=== PATIENT | male | born 1940 | race Caucasian/White ===

== ENCOUNTER 2018-02-27 20:07 | Inpatient (IN) ==
[2018-02-27] MEDS ORDERED: LACTATED RINGERS 1,000 ML IV ONE (20:14)
[2018-02-27] MEDS ORDERED: cefTRIAXone 1 GM in DEXTROSE 5% IN WATER 50 ML IV SCH (20:15)
--- NOTE | 2018-02-27 21:11 | Emergency Department Note ---
Male Urogenital HPI - General Chief complaint: Urogenital-Male Stated complaint: UTI for 1 week Time Seen by Provider: 02/27/18 20:11 Source: patient, family Mode of arrival: wheelchair Limitations: no limitations - History of Present Illness MD Complaint: dysuria, other (low abd and perineal pain) Onset (ago): week(s) Duration: constant, other (markedly worse today) Location: abdomen Severity: moderate Severity scale (1-10): 8 Quality: burning, sharp Improves with: none Worsens with: urination, palpation, movement other (previous dx uti, rx taking, not working) Reports: fever, other (weakness, malaise, aloc) - Related Data Sexually active: No Home Medications Medication Instructions Recorded Confirmed Phenazopyridine HCl [Azo Urinary 2 tab PO TID 02/27/18 02/27/18 Pain Relief] Sulfamethoxazole/Trimethoprim 1 tab PO BID 02/27/18 02/27/18 [Bactrim Ds] Allergies Allergy/AdvReac Type Severity Reaction Status Date / Time No Known Drug Allergies Allergy Unknown NONE Unverified 08/25/14 03:07 [NKDA] Review of Systems All systems ED: reviewed and negative except as stated. Constitutional: Reports: as per HPI, fever, chills, weakness Cardiovascular: Reports: dyspnea on exertion Respiratory: Reports: shortness of breath Gastrointestinal: Reports: abdominal pain, nausea Genitourinary: Reports: dysuria, frequency, urgency, hematuria, incontinence Musculoskeletal: Reports: back pain, myalgia Neurological: Reports: confusion Past Medical History - Past Medical History Attestation: Yes: The following information was validated with the patient. Source: obtained from family Medical history: Reports: arthritis, coronary artery disease, hypertension, other (BPH/UTI) Surgical history ED: Reports: angioplasty/stent (ended up not needing coronary stent, medically managed), orthopedic, other, other (cysto) Family history: Reports: hypertension - Social History smoking status: Former smoker Alcohol use: Reports: Unknown Physical Exam Limitations: no limitations General appearance: in distress, lethargic Head: atraumatic Eye: Present: normal appearance, EOMI ENT: mucous membranes dry Neck: Present: normal inspection Chest: Present: normal inspection Respiratory: Present: normal lung sounds bilaterally Cardiovascular: Present: tachycardia Abdominal: Present: soft, tenderness, normal bowel sounds. Absent: distention, guarding, rebound, rigidity Abdominal tenderness: Present: suprapubic, mild Rectal: Present: deferred : Present: other (perineal palpation mod tender) Extremities: Present: normal inspection Back: Absent: tenderness, CVA tenderness (R), CVA tenderness (L) Neurological: Present: alert, oriented X3, CN II-XII intact Skin: Present: warm, dry Course Course Narrative: several re evals improved mental status with short time here and IVFs awaiting lab/blood results UA dirty inspite of Bactrim use still tachy at 102 but feels better overall Vital Signs Temperature 98.2 F 02/27/18 20:08 Pulse Rate 117 H 02/27/18 20:08 Respiratory Rate 16 02/27/18 20:08 Blood Pressure 150/83 02/27/18 20:08 Pulse Oximetry (%) 91 02/27/18 20:08 Temperature 98.2 F 02/27/18 20:08 Pulse Rate 99 H 02/27/18 22:32 Respiratory Rate 21 02/27/18 22:00 Blood Pressure 107/76 02/27/18 22:30 Pulse Oximetry (%) 92 02/27/18 22:32 Urogenital-Male - MDM Narrative Medical decision making narrative: better after IVFs, but still persistent tachy at 105 and low BP for him at 107 SBP, UA still infected inspite of Bactrim at home, lives >30 miles away, talked to Dr Bragg, will admit tele. - Lab Data Lab results reviewed: Yes I reviewed the patient's lab results. Result diagrams: 02/27/18 20:26 02/27/18 20:26 Lab Results 02/27/18 02/27/18 02/27/18 Range/Units 20:26 20:26 20:26 WBC 6.0 (4.5-11.0) K/mcL RBC 5.26 (4.50-5.90) M/mcL Hgb 16.1 (13.5-16.5) g/dL Hct 47.6 (41.0-55.0) % MCV 90.4 (80.0-100.0) fL MCH 30.6 (26.0-34.0) pg MCHC 33.9 (31.0-36.0) g/dL RDW 14.4 (11.5-14.5) % Plt Count 163 (140-440) K/mcL MPV 8.7 (7.4-10.4) fL Gran % 97.2 H (38.0-78.0) % Lymph % (Auto) 2.2 L (15.5-49.0) % [place] % (Auto) 0.2 L (1.0-12.0) % Eos % (Auto) 0.3 (0.0-7.0) % Baso % (Auto) 0.1 (0.0-2.0) % Gran # 5.9 (1.8-8.0) K/mcL Lymph # (Auto) 0.1 L (1.5-4.8) K/mcL [place] # (Auto) 0 L (0.1-0.9) K/mcL Eos # (Auto) 0 (0.0-0.7) K/mcL Baso # (Auto) 0 (0.0-0.3) K/mcL VBG Lactic Acid 2.4 H (0.5-2.0) mmol/L Sodium 133 (133-145) mmol/L Potassium 3.7 (3.3-5.1) mmol/L Chloride 100 (96-108) mmol/L Carbon Dioxide 15 L (22-30) mmol/L Anion Gap 18.0 H (8-16) BUN 18 (8-23) mg/dl Creatinine 1.3 H (0.7-1.2) mg/dl GFR Calculation 52 Glucose 157 H (70-105) mg/dL Calcium 9.6 (8.6-10.4) mg/dl Total Bilirubin 1.2 H (0.0-1.0) mg/dL AST 19 (0-37) U/l ALT 18 (0-40) U/l Alkaline Phosphatase 117 (39-117) U/L NT-Pro-B Natriuret Pep 95.3 (0-450) pg/ml Total Protein 6.8 (5.9-8.4) gm/dL Albumin 4.1 (3.2-5.2) gm/dL Globulin 2.7 (2.2-3.7) gm/dL Albumin/Globulin Ratio 1.5 (1.0-2.3) - Radiology Data Radiology results reviewed: Yes I reviewed the patient's radiology results. CXR NAD - EKG Data EKG attestation: Yes I reviewed and interpreted this EKG. EKG shows normal: sinus rhythm Rate: tachycardia Marion/QRS: LBBB Disposition Pt seen by [facility] [facility]/PA only: No Clinical Impression: Sepsis associated hypotension Urinary tract infection Qualifiers: Urinary tract infection type: catheter-associated UTI Indwelling urinary catheter type: unspecified Encounter type: initial encounter Qualified Code(s): T83.511A - Infection and inflammatory reaction due to indwelling urethral catheter, initial encounter; N39.0 - Urinary tract infection, site not specified Disposition: Xfer As Inpt ([facility]) Condition: Fair Referrals: Isidro Magdaleno MD [Family Provider] -
[2018-02-27 21:28] LABS: Basophils # (Auto) 0 K/mcL (0.0-0.3); Basophils % (Auto) 0.1 % (0.0-2.0); Eosinophils # (Auto) 0 K/mcL (0.0-0.7); Eosinophils % (Auto) 0.3 % (0.0-7.0); Granulocytes % (Auto) 97.2 % (38.0-78.0); Lymphocytes # (Auto) 0.1 K/mcL (1.5-4.8); Lymphocytes % (Auto) 2.2 % (15.5-49.0); Mean Cell Volume 90.4 fL (80.0-100.0); Mean Corpuscular HGB Conc 33.9 g/dL (31.0-36.0); Mean Corpuscular Hemoglobin 30.6 pg (26.0-34.0); Monocytes # (Auto) 0 K/mcL (0.1-0.9); Monocytes % (Auto) 0.2 % (1.0-12.0); Platelet Count 163 K/mcL (140-440); RBC 5.26 M/mcL (4.50-5.90); Red Cell Distribution Width 14.4 % (11.5-14.5)
[2018-02-27 21:49] LABS: proBNP 95.3 pg/ml (0-450)
[2018-02-27 21:51] LABS: ALT/SGPT 18 U/l (0-40); Albumin 4.1 gm/dL (3.2-5.2); Albumin/Globulin Ratio 1.5 (1.0-2.3); Alkaline Phosphatase 117 U/L (39-117); Blood Urea Nitrogen 18 mg/dl (8-23)
--- NOTE | 2018-02-27 22:49 | Internal Med History&Physical ---
Medical - H&P: [facility] Patient information: Note initiated : 02/27/18 at 10:48 pm Service Date, if different from initiated Date: [] Patient: Miquel Mullen a 77 y/o M admitted on for UTI for 1 week. Chief Complaint: [] Chief complaint: AMS, weakness History of present illness: Mr. Mullen is a 77 year old M with history of chronic urinary retention has been following up with urology since age 19. Patient self caths daily. Patient has been following up with urology Dr. Wright at [place]. Patient symptoms started roughly around a week ago and last Thursday he saw his urology. He was subsequent started on antibiotics however over the next 5 days he failed to improve. Noted intermittent fever along with weakness lightheadedness and has been feeling very lethargic. Increasing concerns he was brought into [place] ER. Initial workup was significant for pyuria/fever of 102 along with sepsis. Hospitalist service was consulted At the time of evaluation patient is accompanied with his Aditi. He was able to answer most of the questions. He denies hematuria but endorses to burning sensation. He denies drenching sweats but endorses to shaking chills. He denies chest pain myalgia arthralgia or rash, changes in medications. Review of systems 10 point review of system was performed and is negative except for one discussed above Medical - H&P: PMH Medical history: Hypertension CAD Arthritis Chronic urinary retention requiring straight cath Surgical history: Angioplasty Cystoscopy Pertinent family history: Nonsignificant Social history: Former smoker Sees urology Dr. Kyle Mendoza Medical - H&P: Meds Home Medications Medication Instructions Recorded Confirmed Type Phenazopyridine HCl [Azo Urinary 2 tab PO TID 02/27/18 02/27/18 History Pain Relief] Sulfamethoxazole/Trimethoprim 1 tab PO BID 02/27/18 02/28/18 History [Bactrim Ds] Allergies Allergy/AdvReac Type Severity Reaction Status Date / Time No Known Drug Allergies Allergy Unknown NONE Unverified 08/25/14 03:07 [NKDA] Medical - H&P: Exam - Constitutional Vitals: Temp Pulse Resp BP Pulse Ox 98.2 F 99 H 21 107/76 92 02/27/18 20:08 02/27/18 22:32 02/27/18 22:00 02/27/18 22:30 02/27/18 22:32 General appearance: no acute distress Exam: Patient alert and oriented. Head normocephalic Oral cavity dry No ear nose discharge Neck lymphadenopathy S1-S2 regular rhythm no murmur Chest clear to auscultation Abdomen soft nontender Lower extremity no cyanosis clubbing no joint swelling Skin no suspicious lesion Psych alert cooperative Neuro diminished strength/limited plantar dorsiflexion Medical - H&P: Reslt - Labs CBC & Chem 7: 02/27/18 20:26 02/27/18 20:26 Labs: Short CBC 02/27/18 Range/Units 20:26 WBC 6.0 (4.5-11.0) K/mcL Hgb 16.1 (13.5-16.5) g/dL Hct 47.6 (41.0-55.0) % Plt Count 163 (140-440) K/mcL BMP 02/27/18 20:26 Sodium 133 Potassium 3.7 Chloride 100 Carbon Dioxide 15 L BUN 18 Creatinine 1.3 H Glucose 157 H Calcium 9.6 Liver Function 02/27/18 Range/Units 20:26 Total Bilirubin 1.2 H (0.0-1.0) mg/dL AST 19 (0-37) U/l ALT 18 (0-40) U/l Alkaline Phosphatase 117 (39-117) U/L Albumin 4.1 (3.2-5.2) gm/dL Medical - H&P: A/P (1) Complicated UTI (urinary tract infection) Current visit: Yes Status: Acute * Sepsis associated with hypotension-management per guidelines. Venous lactate trending. Continue crystalloid challenges. Vasopressors if indicated. * Complicated UTI-start Rocephin. Await cultures. * History of hypertension hold antihypertensives. * Full code * Prophylaxis heparin Plan * Sepsis management guidelines * Crystalloids boluses/pancultures/venous lactate trending/vasopressors if indicated * Antibiotic coverage * PT OT * Inpatient admit
[2018-02-27] MEDS ORDERED: MAGNESIUM SULFATE 2 GM/50 ML BAG IV PRN (23:48)
[2018-02-27] MEDS ORDERED: ONDANSETRON 4 MG/2 ML VIAL IV PRN (23:48)
[2018-02-27] MEDS ORDERED: cefTRIAXone 2 GM in DEXTROSE 5% IN WATER 50 ML IV SCH (23:48)
[2018-02-27] MEDS ORDERED: 0.9 % SODIUM CHLORIDE 1,000 ML IV SCH (23:48)
[2018-02-27] MEDS ORDERED: POTASSIUM CHLORIDE 20 MEQ PACKET PO PRN (23:48)
[2018-02-28] MEDS ORDERED: cefTRIAXone 1 GM VIAL ONE
[2018-02-28] MEDS: ACETAMINOPHEN 325 MG TABLET PO PRN ×3 (01:02→14:47)
[2018-02-28] MEDS ORDERED: ACETAMINOPHEN 325 MG TABLET PO ONE (01:08)
[2018-02-28] MEDS: 0.9 % SODIUM CHLORIDE 1,000 ML IV SCH (02:35)
[2018-02-28 03:42] LABS: Mean Cell Volume 90.1 fL (80.0-100.0); Mean Corpuscular HGB Conc 33.7 g/dL (31.0-36.0); Mean Corpuscular Hemoglobin 30.4 pg (26.0-34.0); Platelet Count 143 K/mcL (140-440); RBC 4.51 M/mcL (4.50-5.90); Red Cell Distribution Width 14.2 % (11.5-14.5)
[2018-02-28 04:01] LABS: ALT/SGPT 19 U/l (0-40); Albumin 3.4 gm/dL (3.2-5.2); Albumin/Globulin Ratio 1.5 (1.0-2.3); Alkaline Phosphatase 69 U/L (39-117); Bilirubin,Direct < 0.2 mg/dL (0.0-0.3); Blood Urea Nitrogen 19 mg/dl (8-23); Gamma Glutamyl Transpeptidase 42 U/L (8-61); Uric Acid 4.9 mg/dL (2.5-8.0)
[2018-02-28 04:16] LABS: Band Neutrophils % 19 % (0-10); Basophils % (Manual) 1 % (0-2); Lymphocytes % 2 % (15-49); Metamyelocytes % 2 % (0-0); Monocytes % (Manual) 3 % (1-12); Platelet Estimate NORMAL (NORMAL); RBC Morphology NORMAL (NORMAL); Segmented Neutrophils % 73 % (38-78)
[2018-02-28] MEDS: MAGNESIUM SULFATE 2 GM/50 ML BAG IV ONE ×2 (04:50→06:06)
[2018-02-28] MEDS: 0.9 % SODIUM CHLORIDE 10 ML SYRINGE IV SCH ×3 (04:51→20:37)
[2018-02-28] MEDS ORDERED: LACTATED RINGERS 1,000 ML IV ONE ×2 (06:39→06:40)
[2018-02-28] MEDS ORDERED: MAGNESIUM SULFATE 2 GM/50 ML BAG IV ONE (06:41)
[2018-02-28] MEDS: MULTIVIT,THER IRON,CA,FA & MIN 1 TABLET PO SCH (08:18)
[2018-02-28] MEDS: HEPARIN 5,000 UNIT/ML VIAL SQ SCH ×2 (08:18→20:36)
[2018-02-28] MEDS: DOCUSATE SODIUM 100 MG CAPSULE PO SCH ×2 (08:18→20:37)
[2018-02-28] MEDS: NEUTRA PHOS 1 PACKET PO SCH ×2 (08:18→20:37)
--- NOTE | 2018-02-28 08:51 | XRay Report ---
HISTORY: Sepsis and urinary tract infection FINDINGS: Subtle increased interstitial lung markings are seen adjacent to the left diaphragm. This could be low-level inflammation or fibrosis. Similar findings were present at both lung bases on the prior abdomen CT done on 05/11/17. The remainder of the lung connelly are clear and well expanded. There is no evidence of pneumonia. The heart size, pulmonary vasculature, mediastinum, brent and pleura are normal. IMPRESSION: Subtle chronic interstitial lung disease in the left lower lobe. The chest is otherwise normal. Interpreted and Authenticated by: Mack Serrano 02/28/18
[2018-02-28 09:41] LABS: Appearance,Urine CLEAR; Bacteria,Urine 0 /hpf (0); Bilirubin,Urine NEG (NEG); Color,Urine YELLOW; Glucose,Urine (UA) NEGATIVE (NEG); Leukocyte Esterase,Urine 25 /uL (NEG); Protein,Urine NEG (NEG); Specific Gravity,Urine 1.008 (1.000-1.035); Urine Blood 0.2 mg/dL (<0.03); Urine RBC < 1 /hpf (0-1); Urine Squamous Epithelial Cell 0 /hpf (0-4); Urine WBC 3 /hpf (0-4); Urobilinogen,Urine NEG (NEG)
--- NOTE | 2018-02-28 10:21 | Internal Med Progress Note ---
Medical - PN: Subj Patient information: Note initiated : 02/28/18 at 10:18 am Service Date, if different from initiated Date: [] Patient: Miquel Mullen a 77 y/o M admitted on 02/27/18 for UTI for 1 week. Chief Complaint: [] Interval history: Mr. Mullen is a 77 year old M with history of chronic urinary retention has been following up with urology since age 19. Patient self caths daily. Patient has been following up with urology Dr. Wright at [place]. Patient symptoms started roughly around a week ago and last Thursday he saw his urology. He was subsequent started on antibiotics however over the next 5 days he failed to improve. Noted intermittent fever along with weakness lightheadedness and has been feeling very lethargic. Increasing concerns he was brought into [place] ER. Initial workup was significant for pyuria/fever of 102 along with sepsis. Hospitalist service was consulted At the time of evaluation patient is accompanied with his Aditi. He was able to answer most of the questions. He denies hematuria but endorses to burning sensation. He denies drenching sweats but endorses to shaking chills. He denies chest pain myalgia arthralgia or rash, changes in medications. 02/28 Patient seen examined, no acute overnight issues, some low bp reading,s but otherwise doing well lactic acid was trending up, 2.9 this AM labs showed wbc 17, 19% bands, magnesium 1.6, phosphorus 2.0, creatinine 1.4. Patient received 2 L of saline bolus and lactic acid came down to 2.1. Patient clinically feeling much better has no chest pain shortness of breath or any GI complaints Pertinent ROS: Denies headache, dizziness Denies chest pain, palpitations Denies cough or shortness of breath Denies abdominal pain, nausea or vomiting. - Constitutional Vitals: Vital Signs Temp Pulse Resp BP Pulse Ox 98.5 F 72 24 H 104/66 99 02/28/18 06:01 02/28/18 07:02 02/28/18 04:02 02/28/18 07:01 02/28/18 07:02 Period Temp Pulse Resp BP Sys/Frausto Pulse Ox Last 24 Hr 98.2 F-102.6 F 65-119 12-26 78-150/41-94 90-99 Intake and Output 02/27/18 02/28/18 02/28/18 21:59 05:59 13:59 Intake Total 50 / 50 2390 / 2390 Output Total 875 / 875 850 / 850 Balance 50 / 50 1515 / 1515 -850 / -850 Weight 220 lb 234 lb 1.6 oz Intake & Output: Intake & Output 02/27/18 02/28/18 02/28/18 21:59 05:59 13:59 Intake Total 50 / 50 2390 / 2390 Output Total 875 / 875 850 / 850 Balance 50 / 50 1515 / 1515 -850 / -850 Weight 220 lb 234 lb 1.6 oz Intake: IV 50 / 50 0 / 2050 Sodium Chloride 0.9% 1,000 ml @ 1000 / 1000 Wide Open IV BOLUS JESSICA Rx#: [id number] Lactated Ringers 1,000 ml @ 500 1000 / 1000 mls/hr IV .Q2H ONE Rx#: [id number] Rocephin 1 gm In Dextrose 5% in 50 / 50 Water 50 ml @ 100 mls/hr IV ONCE JESSICA Rx#:[id number] Oral 340 / 340 Output: Urine Catheter Amount 875 / 875 850 / 850 Other: Urine Appearance Clear Urine Color Lee Lee Exam: Constitutional; Afebrile, cooperative, alert, not in distress. Respiratory system: Air Entry equal on both sides, No crackles or wheezing, no rhonchi. CVS- Rate rhythm regular, S1,S2 heard, no gallop, no rub. Abdomen- Soft nontender abdomen, no organomegaly, no tenderness, no guarding or rigidity, POSITION CLASSIFIER- AOOx3, moving all extremities, no gross focal deficit noted. Medical - PN: Obj Da - Labs CBC & Chem 7: 02/28/18 02:57 02/28/18 02:57 Labs: Abnormal Lab Results 02/28/18 02/28/18 02/28/18 08:15 07:57 02:57 WBC Hct Gran % Lymph % (Auto) [place] % (Auto) Lymph # (Auto) [place] # (Auto) Band Neutrophils % Lymphocytes % Metamyelocytes % VBG Lactic Acid 2.1 H 2.9 H Sodium Carbon Dioxide Anion Gap Creatinine Glucose Calcium Phosphorus Total Bilirubin Total Protein Urine Occult Blood 0.2 A Urine Nitrate Pos A Ur Leukocyte Esterase 25 A 02/28/18 02/28/18 02/27/18 02:57 02:57 20:26 WBC 17.7 H Hct 40.7 L Gran % Lymph % (Auto) [place] % (Auto) Lymph # (Auto) [place] # (Auto) Band Neutrophils % 19 H Lymphocytes % 2 L Metamyelocytes % 2 H VBG Lactic Acid 2.4 H Sodium 132 L Carbon Dioxide 19 L Anion Gap Creatinine 1.4 H Glucose 133 H Calcium 8.5 L Phosphorus 2.0 L Total Bilirubin Total Protein 5.7 L Urine Occult Blood Urine Nitrate Ur Leukocyte Esterase 02/27/18 02/27/18 20:26 20:26 WBC Hct Gran % 97.2 H Lymph % (Auto) 2.2 L [place] % (Auto) 0.2 L Lymph # (Auto) 0.1 L [place] # (Auto) 0 L Band Neutrophils % Lymphocytes % Metamyelocytes % VBG Lactic Acid Sodium Carbon Dioxide 15 L Anion Gap 18.0 H Creatinine 1.3 H Glucose 157 H Calcium Phosphorus Total Bilirubin 1.2 H Total Protein Urine Occult Blood Urine Nitrate Ur Leukocyte Esterase Meds: Medications Acetaminophen (Tylenol) 650 mg PO Q4-6HP PRN PRN Reason: PAIN/FEVER > 101 Last Admin: 02/28/18 08:17 Dose: 650 mg Docusate Sodium (Colace) 100 mg PO BID [facility] Last Admin: 02/28/18 08:18 Dose: 100 mg Heparin Sodium (Porcine) (Heparin) 5,000 unit SQ Q12 [facility] Last Admin: 02/28/18 08:18 Dose: 5,000 unit Magnesium Sulfate (Magnesium Sulfate) 2 gm in 50 mls @ 50 mls/hr IV UD PRN PRN Reason: MG = or < 1.7 Last Infusion: 02/28/18 05:54 Dose: Infused Acetaminophen (Ofirmev) 1,000 mg in 100 mls @ 200 mls/hr IV Q6HP PRN PRN Reason: PAIN/FEVER > 101 Sodium Chloride (Sodium Chloride 0.9%) 1,000 mls @ 0 mls/hr IV BOLUS [facility] Last Infusion: 02/28/18 05:08 Dose: Infused Ceftriaxone Sodium 2 gm/ (Dextrose) 50 mls @ 100 mls/hr IV DAILY [facility] Iron Carb/Multivit/Stanly/Folic Acid (Multivitamin W/Minerals) 1 tab PO DAILY [facility] Last Admin: 02/28/18 08:18 Dose: 1 tab Ondansetron HCl (Zofran) 4 mg IV Q4-6HP PRN PRN Reason: Nausea And Vomiting Potassium Chloride (Klor-Con) 40 meq PO DAILYP PRN PRN Reason: K+ < 3.5 Potassium/Phosphorus/Sodium (Neutra Phos) 1 packet PO BID JESSICA Last Admin: 02/28/18 08:18 Dose: 1 packet Senna/Docusate Sodium (Senna Plus Tablet) 1 tab PO HS JESSICA Sodium Chloride (Saline Flush) 10 ml IV Q8 [facility] Last Admin: 02/28/18 04:51 Dose: Not Given Medical - PN: A/P - Time Spent With Patient Total time spent is greater than 50% in coordination of care (as documented) at patient's floor/unit and/or counseling patient: - Narrative A/P Narrative: A/P Complicated UTI- Urine cultures sent, on IV rocephin with good response, monitor. Sepsis with hypotension/ Lactic acidosis- Last lactic acid is 2.1, continue to trend, bp stable, pt tolerating po well, clinically much improved. monitor closely h/o HTN- Home bp meds on hold for now, need to verify home meds OT/PT DVT - hep sq Full code Medical - PN: Qual - VTE Deep Vein Thrombosis/Pulmonary Embolism Present on Admission: No
[2018-02-28] MEDS: cefTRIAXone 2 GM in DEXTROSE 5% IN WATER 50 ML IV SCH (14:47)
--- NOTE | 2018-02-28 15:40 | Ultrasound Report ---
History: Urinary tract infection FINDINGS: The right kidney measures 5.4 x 5.5 x 11.9 cm and the left measures 5.5 x 5.9 x 11.3 cm. There are parapelvic cysts in both kidneys. These were documented on a prior abdomen CT done on 05/11/17. There is no hydronephrosis. No solid mass or calculus are present in either kidney. The left kidney has a moderate size wedge-shaped scar located laterally in the middle one third. The cortex is normal otherwise normal in thickness and echogenicity bilaterally. Doppler shows normal flow of urine through both ureters into the bladder. The bladder is well distended and measures 337 cc. After voiding there is 5 cc residual urine. No debris is seen within the bladder and the wall is normal in thickness. The spleen is upper limits of normal in size. This has probably not changed since prior CT scan. The prostate is mildly enlarged and heterogeneous. IMPRESSION: No acute abnormality in either kidney Interpreted and Authenticated by: Mack Serrano 02/28/18
[2018-02-28] MEDS ORDERED: SENNOSIDES/DOCUSATE SODIUM 1 TAB TABLET PO SCH (21:00)
[2018-02-28] MEDS: ACETAMINOPHEN 1,000 MG/100 ML BOTTLE IV PRN (23:40)
[2018-03-01] MEDS: 0.9 % SODIUM CHLORIDE 1,000 ML IV SCH (04:14)
[2018-03-01 05:59] LABS: Mean Corpuscular HGB Conc 33.6 g/dL (31.0-36.0); Mean Corpuscular Hemoglobin 30.9 pg (26.0-34.0); Platelet Count 116 K/mcL (140-440); RBC 4.36 M/mcL (4.50-5.90); Red Cell Distribution Width 14.5 % (11.5-14.5)
[2018-03-01] MEDS: 0.9 % SODIUM CHLORIDE 10 ML SYRINGE IV SCH ×3 (05:59→21:29)
[2018-03-01] MEDS: ACETAMINOPHEN 1,000 MG/100 ML BOTTLE IV PRN (06:03)
[2018-03-01 06:32] LABS: ALT/SGPT 15 U/l (0-40); Albumin 3.2 gm/dL (3.2-5.2); Albumin/Globulin Ratio 1.4 (1.0-2.3); Alkaline Phosphatase 78 U/L (39-117); Bilirubin,Direct 0.2 mg/dL (0.0-0.3); Blood Urea Nitrogen 16 mg/dl (8-23); Gamma Glutamyl Transpeptidase 35 U/L (8-61); Uric Acid 3.3 mg/dL (2.5-8.0)
[2018-03-01 06:55] LABS: Band Neutrophils % 25 % (0-10); Eosinophils % (Manual) 1 % (0-7); Lymphocytes % 7 % (15-49); Monocytes % (Manual) 3 % (1-12); Platelet Estimate DECREASED (NORMAL); RBC Morphology NORMAL (NORMAL); Segmented Neutrophils % 64 % (38-78)
[2018-03-01] MEDS ORDERED: VITAMIN D3 COMPLETE PO SCH (07:15)
[2018-03-01] MEDS ORDERED: VITAMIN B12 1000 MCG PO SCH (07:15)
[2018-03-01] MEDS ORDERED: LEVOTHYROXINE 100 MCG TABLET PO SCH (07:30)
[2018-03-01] MEDS ORDERED: OMEPRAZOLE 20 MG CAPSULE PO SCH (07:30)
[2018-03-01] MEDS: NEUTRA PHOS 1 PACKET PO SCH ×2 (08:11→21:26)
[2018-03-01] MEDS: DOCUSATE SODIUM 100 MG CAPSULE PO SCH ×2 (08:11→21:29)
[2018-03-01] MEDS: MULTIVIT,THER IRON,CA,FA & MIN 1 TABLET PO SCH (08:11)
[2018-03-01] MEDS: HEPARIN 5,000 UNIT/ML VIAL SQ SCH ×2 (08:12→21:27)
[2018-03-01] MEDS: cefTRIAXone 2 GM in DEXTROSE 5% IN WATER 50 ML IV SCH (08:42)
[2018-03-01] MEDS ORDERED: PHENAZOPYRIDINE 200 MG TABLET PO SCH (09:00)
[2018-03-01] MEDS ORDERED: ATORVASTATIN 20 MG TABLET PO SCH (09:00)
--- NOTE | 2018-03-01 09:36 | Internal Med Progress Note ---
Medical - PN: Subj Patient information: Note initiated : 03/01/18 at 9:33 am Service Date, if different from initiated Date: [] Patient: Miquel Mullen a 77 y/o M admitted on 02/27/18 for UTI for 1 week. Chief Complaint: [] Interval history: Mr. Mullen is a 77 year old M with history of chronic urinary retention has been following up with urology since age 19. Patient self caths daily. Patient has been following up with urology Dr. Wright at [place]. Patient symptoms started roughly around a week ago and last Thursday he saw his urology. He was subsequent started on antibiotics however over the next 5 days he failed to improve. Noted intermittent fever along with weakness lightheadedness and has been feeling very lethargic. Increasing concerns he was [facility]. Initial workup was significant for pyuria/fever of 102 along with sepsis. Hospitalist service was consulted At the time of evaluation patient is accompanied with his Aditi. He was able to answer most of the questions. He denies hematuria but endorses to burning sensation. He denies drenching sweats but endorses to shaking chills. He denies chest pain myalgia arthralgia or rash, changes in medications. 02/28 Patient seen examined, no acute overnight issues, some low bp reading,s but otherwise doing well lactic acid was trending up, 2.9 this AM labs showed wbc 17, 19% bands, magnesium 1.6, phosphorus 2.0, creatinine 1.4. Patient received 2 L of saline bolus and lactic acid came down to 2.1. Patient clinically feeling much better has no chest pain shortness of breath or any GI complaints 03/01 Patient seen examined, doing much better, WBC trending down. The patient has burning sensation in the bladder. Once his home medication azo restarted. Lactic acid has normalized, patient will be moved from telemetry status to floor status. Patient still has a low-grade temperature. Anticipate discharge once afebrile Pertinent ROS: Denies headache, dizziness Denies chest pain, palpitations Denies cough or shortness of breath Denies abdominal pain, nausea or vomiting. - Constitutional Vitals: Vital Signs Temp Pulse Resp BP Pulse Ox 99.0 F 77 18 118/64 95 03/01/18 07:24 03/01/18 07:24 03/01/18 07:24 03/01/18 07:24 03/01/18 08:00 Period Temp Pulse Resp BP Sys/Frausto Pulse Ox Last 24 Hr 99.0 F-100.6 F 73-91 03-09 85-122/44-80 93-98 Intake and Output 02/28/18 03/01/18 03/01/18 21:59 05:59 13:59 Intake Total 1210 / 1210 100 / 100 700 / 700 Output Total 425 / 425 600 / 600 650 / 650 Balance 785 / 785 -500 / -500 50 / 50 Weight 239 lb 4 oz Intake & Output: Intake & Output 02/28/18 03/01/18 03/01/18 21:59 05:59 13:59 Intake Total 1210 / 1210 100 / 100 700 / 700 Output Total 425 / 425 600 / 600 650 / 650 Balance 785 / 785 -500 / -500 50 / 50 Weight 239 lb 4 oz Intake: IV 50 / 50 100 / 100 100 / 100 Rocephin 2 gm In Dextrose 5% in 50 / 50 Water 50 ml @ 100 mls/hr IV DAILY [facility] Rx#:[id number] Oral 1160 / 1160 600 / 600 Output: Urine Catheter Amount 425 / 425 600 / 600 650 / 650 Other: Meal Breakfast Percent of Meal Consumed 100% Urine Appearance Cloudy Clear Uretheral (Ta) Clear Urine Color Dark Yellow Light [place] Dark Yellow Uretheral (Ta) Dark Yellow Urine Odor Normal Exam: Constitutional; Afebrile, cooperative, alert, not in distress. Respiratory system: Air Entry equal on both sides, No crackles or wheezing, no rhonchi. CVS- Rate rhythm regular, S1,S2 heard, no gallop, no rub. 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 Medical - PN: Obj Da - Labs CBC & Chem 7: 03/01/18 03:38 03/01/18 03:38 Labs: Abnormal Lab Results 03/01/18 03/01/18 02/28/18 03:38 03:38 08:15 WBC 14.8 H RBC 4.36 L Hgb 13.4 L Hct 40.1 L Plt Count 116 L Gran % Lymph % (Auto) [place] % (Auto) Lymph # (Auto) [place] # (Auto) Band Neutrophils % 25 H Lymphocytes % 7 L Metamyelocytes % Platelet Estimate Decreased A VBG Lactic Acid Sodium Carbon Dioxide 19 L Anion Gap Creatinine Glucose Calcium 8.5 L Phosphorus Total Bilirubin 1.2 H Total Protein 5.5 L Urine Occult Blood 0.2 A Urine Nitrate Pos A Ur Leukocyte Esterase 25 A 02/28/18 02/28/18 02/28/18 07:57 02:57 02:57 WBC RBC Hgb Hct Plt Count Gran % Lymph % (Auto) [place] % (Auto) Lymph # (Auto) [place] # (Auto) Band Neutrophils % Lymphocytes % Metamyelocytes % Platelet Estimate VBG Lactic Acid 2.1 H 2.9 H Sodium 132 L Carbon Dioxide 19 L Anion Gap Creatinine 1.4 H Glucose 133 H Calcium 8.5 L Phosphorus 2.0 L Total Bilirubin Total Protein 5.7 L Urine Occult Blood Urine Nitrate Ur Leukocyte Esterase 02/28/18 02/27/18 02/27/18 02:57 20:26 20:26 WBC 17.7 H RBC Hgb Hct 40.7 L Plt Count Gran % Lymph % (Auto) [place] % (Auto) Lymph # (Auto) [place] # (Auto) Band Neutrophils % 19 H Lymphocytes % 2 L Metamyelocytes % 2 H Platelet Estimate VBG Lactic Acid 2.4 H Sodium Carbon Dioxide 15 L Anion Gap 18.0 H Creatinine 1.3 H Glucose 157 H Calcium Phosphorus Total Bilirubin 1.2 H Total Protein Urine Occult Blood Urine Nitrate Ur Leukocyte Esterase 02/27/18 20:26 WBC RBC Hgb Hct Plt Count Gran % 97.2 H Lymph % (Auto) 2.2 L [place] % (Auto) 0.2 L Lymph # (Auto) 0.1 L [place] # (Auto) 0 L Band Neutrophils % Lymphocytes % Metamyelocytes % Platelet Estimate VBG Lactic Acid Sodium Carbon Dioxide Anion Gap Creatinine Glucose Calcium Phosphorus Total Bilirubin Total Protein Urine Occult Blood Urine Nitrate Ur Leukocyte Esterase Meds: Medications Acetaminophen (Tylenol) 650 mg PO Q4-6HP PRN PRN Reason: PAIN/FEVER > 101 Last Admin: 02/28/18 14:47 Dose: 650 mg Atorvastatin Calcium (Lipitor) 20 mg PO DAILY [facility] Last Admin: 03/01/18 08:11 Dose: 20 mg Docusate Sodium (Colace) 100 mg PO BID [facility] Last Admin: 03/01/18 08:11 Dose: 100 mg Heparin Sodium (Porcine) (Heparin) 5,000 unit SQ Q12 [facility] Last Admin: 03/01/18 08:12 Dose: 5,000 unit Magnesium Sulfate (Magnesium Sulfate) 2 gm in 50 mls @ 50 mls/hr IV UD PRN PRN Reason: MG = or < 1.7 Last Infusion: 02/28/18 05:54 Dose: Infused Acetaminophen (Ofirmev) 1,000 mg in 100 mls @ 200 mls/hr IV Q6HP PRN PRN Reason: PAIN/FEVER > 101 Last Infusion: 03/01/18 08:07 Dose: Infused Ceftriaxone Sodium 2 gm/ (Dextrose) 50 mls @ 100 mls/hr IV DAILY [facility] Last Admin: 03/01/18 08:42 Dose: 100 mls/hr Iron Carb/Multivit/Upholsterer Helper/Folic Acid (Multivitamin W/Minerals) 1 tab PO DAILY [facility] Last Admin: 03/01/18 08:11 Dose: 1 tab Levothyroxine Sodium (Synthroid) 100 mcg PO QAMAC [facility] Last Admin: 03/01/18 08:11 Dose: 100 mcg Non-Formulary Medication (Vitamin B12) 1,000 mcg PO WEEKLY [facility] Non-Formulary Medication (Vitamin D3 Complete Caplet) 50,000 unit PO WEEKLY [facility] Omeprazole (Prilosec) 20 mg PO QAMAC [facility] Last Admin: 03/01/18 08:11 Dose: 20 mg Ondansetron HCl (Zofran) 4 mg IV Q4-6HP PRN PRN Reason: Nausea And Vomiting Phenazopyridine HCl (Pyridium) 200 mg PO TID [facility] Last Admin: 03/01/18 08:11 Dose: 200 mg Potassium Chloride (Klor-Con) 40 meq PO DAILYP PRN PRN Reason: K+ < 3.5 Potassium/Phosphorus/Sodium (Neutra Phos) 1 packet PO BID [facility] Last Admin: 03/01/18 08:11 Dose: 1 packet Senna/Docusate Sodium (Senna Plus Tablet) 1 tab PO HS [facility] Last Admin: 02/28/18 20:37 Dose: 1 tab Sodium Chloride (Saline Flush) 10 ml IV Q8 [facility] Last Admin: 03/01/18 05:59 Dose: 10 ml Medical - PN: A/P - Time Spent With Patient Total time spent is greater than 50% in coordination of care (as documented) at patient's floor/unit and/or counseling patient: - Narrative A/P Narrative: A/P Complicated UTI- Urine cultures sent, on IV rocephin with good response, monitor. Sepsis with hypotension/ Lactic acidosis-resolved. WBC trending down, lactic acid levels have normalized h/o HTN- Home bp meds to be resumed OT/PT DVT - hep sq Full code Medical - PN: Qual - VTE Deep Vein Thrombosis/Pulmonary Embolism Present on Admission: No
[2018-03-01] MEDS ORDERED: POTASSIUM CHLORIDE 20 MEQ PACKET PO PRN (10:16)
[2018-03-01] MEDS ORDERED: ACETAMINOPHEN 1,000 MG/100 ML BOTTLE IV PRN (10:16)
[2018-03-01] MEDS ORDERED: ONDANSETRON 4 MG/2 ML VIAL IV PRN (10:16)
[2018-03-01] MEDS ORDERED: MAGNESIUM SULFATE 2 GM/50 ML BAG IV PRN (10:16)
[2018-03-01] MEDS ORDERED: ACETAMINOPHEN 325 MG TABLET PO PRN (10:16)
[2018-03-01] MEDS ORDERED: FLEETS ADULT ENEMA PR PRN (10:21)
[2018-03-01] MEDS ORDERED: BISACODYL 10 MG SUPP.RECT PR PRN (10:21)
[2018-03-01] MEDS ORDERED: MAGNESIUM HYDROXIDE 30 ML ORAL.SUSP PO PRN (10:21)
[2018-03-01] MEDS: PHENAZOPYRIDINE 200 MG TABLET PO SCH ×2 (15:09→21:26)
[2018-03-01] MEDS: SENNOSIDES/DOCUSATE SODIUM 1 TAB TABLET PO SCH (21:29)
[2018-03-01] MEDS ORDERED: traZODone HCL 50 MG TABLET PO PRN (21:35)
[2018-03-02 05:49] LABS: Mean Cell Volume 90.8 fL (80.0-100.0); Mean Corpuscular Hemoglobin 30.9 pg (26.0-34.0); Platelet Count 117 K/mcL (140-440); Red Cell Distribution Width 14.4 % (11.5-14.5)
[2018-03-02 06:29] LABS: ALT/SGPT 18 U/l (0-40); Albumin 3.1 gm/dL (3.2-5.2); Albumin/Globulin Ratio 1.1 (1.0-2.3); Alkaline Phosphatase 113 U/L (39-117); Bilirubin,Direct 0.2 mg/dL (0.0-0.3); Blood Urea Nitrogen 12 mg/dl (8-23); Gamma Glutamyl Transpeptidase 47 U/L (8-61); Uric Acid 3.2 mg/dL (2.5-8.0)
[2018-03-02] MEDS: 0.9 % SODIUM CHLORIDE 10 ML SYRINGE IV SCH ×3 (06:41→21:10)
[2018-03-02] MEDS: LEVOTHYROXINE 100 MCG TABLET PO SCH (07:24)
[2018-03-02] MEDS: OMEPRAZOLE 20 MG CAPSULE PO SCH (07:24)
[2018-03-02 08:12] LABS: Band Neutrophils % 14 % (0-10); Lymphocytes % 8 % (15-49); Monocytes % (Manual) 7 % (1-12); Platelet Estimate DECREASED (NORMAL); RBC Morphology NORMAL (NORMAL); Segmented Neutrophils % 71 % (38-78)
[2018-03-02] MEDS ORDERED: VANCOMYCIN PER PHARMACY IV SCH (08:25)
[2018-03-02] MEDS: ATORVASTATIN 20 MG TABLET PO SCH (08:50)
[2018-03-02] MEDS: MULTIVIT,THER IRON,CA,FA & MIN 1 TABLET PO SCH (08:50)
[2018-03-02] MEDS: DOCUSATE SODIUM 100 MG CAPSULE PO SCH ×2 (08:50→21:08)
[2018-03-02] MEDS: PHENAZOPYRIDINE 200 MG TABLET PO SCH ×3 (08:50→21:07)
[2018-03-02] MEDS: cefTRIAXone 2 GM in DEXTROSE 5% IN WATER 50 ML IV SCH (08:50)
[2018-03-02] MEDS: HEPARIN 5,000 UNIT/ML VIAL SQ SCH ×2 (08:50→21:09)
[2018-03-02] MEDS: LOSARTAN 50 MG TABLET PO SCH (08:50)
[2018-03-02] MEDS: NEUTRA PHOS 1 PACKET PO SCH ×2 (08:51→21:07)
[2018-03-02] MEDS: VANCOMYCIN 1,000 MG in 0.9 % SODIUM CHLORIDE 250 ML IV SCH ×2 (09:29→21:09)
--- NOTE | 2018-03-02 11:32 | Internal Med Progress Note ---
Medical - PN: Subj Patient information: Note initiated : 03/02/18 at 11:29 am Service Date, if different from initiated Date: [] Patient: Miquel Mullen a 77 y/o M admitted on 02/27/18 for UTI for 1 week. Chief Complaint: [] Interval history: Mr. Mullen is a 77 year old M with history of chronic urinary retention has been following up with urology since age 19. Patient self caths daily. Patient has been following up with urology Dr. Wright at [place]. Patient symptoms started roughly around a week ago and last Thursday he saw his urology. He was subsequent started on antibiotics however over the next 5 days he failed to improve. Noted intermittent fever along with weakness lightheadedness and has been feeling very lethargic. Increasing concerns [facility] Initial workup was significant for pyuria/fever of 102 along with sepsis. Hospitalist service was consulted At the time of evaluation patient is accompanied with his Aditi. He was able to answer most of the questions. He denies hematuria but endorses to burning sensation. He denies drenching sweats but endorses to shaking chills. He denies chest pain myalgia arthralgia or rash, changes in medications. 02/28 Patient seen examined, no acute overnight issues, some low bp reading,s but otherwise doing well lactic acid was trending up, 2.9 this AM labs showed wbc 17, 19% bands, magnesium 1.6, phosphorus 2.0, creatinine 1.4. Patient received 2 L of saline bolus and lactic acid came down to 2.1. Patient clinically feeling much better has no chest pain shortness of breath or any GI complaints 03/01 Patient seen examined, doing much better, WBC trending down. The patient has burning sensation in the bladder. Once his home medication azo restarted. Lactic acid has normalized, patient will be moved from telemetry status to floor status. Patient still has a low-grade temperature. Anticipate discharge once afebrile 03/02 Pt seen examined, had some chills last night, low grade fever blood cultures drawn during admission is positive 2 bottles for GPC in clusters , no speciation provided Pt started on vancomycin, repeat cultures sent Patient otherwise doing much better no acute complaints or concerns. Plan of care reviewed with him and his Pertinent ROS: Denies headache, dizziness Denies chest pain, palpitations Denies cough or shortness of breath Denies abdominal pain, nausea or vomiting. - Constitutional Vitals: Vital Signs Temp Pulse Resp BP Pulse Ox 98.7 F 73 20 115/70 98 03/02/18 07:47 03/02/18 07:47 03/02/18 07:47 03/02/18 07:47 03/02/18 07:47 Period Temp Pulse Resp BP Sys/Frausto Pulse Ox Last 24 Hr 97.9 F-100.2 F 68-97 16-28 94-149/58-83 92-98 Intake and Output 03/01/18 03/02/18 03/02/18 21:59 05:59 13:59 Intake Total 500 / 500 680 / 680 410 / 410 Output Total 1025 / 1025 700 / 700 Balance -525 / -525 680 / 680 -290 / -290 Weight 233 lb 8 oz Intake & Output: Intake & Output 03/01/18 03/02/18 03/02/18 21:59 05:59 13:59 Intake Total 500 / 500 680 / 680 410 / 410 Output Total 1025 / 1025 700 / 700 Balance -525 / -525 680 / 680 -290 / -290 Weight 233 lb 8 oz Intake: IV 50 / 50 Rocephin 2 gm In Dextrose 5% in 50 / 50 Water 50 ml @ 100 mls/hr IV DAILY [facility] Rx#:[id number] Oral 500 / 500 680 / 680 360 / 360 Output: Urine Catheter Amount 1025 / 1025 Void Amount 700 / 700 Other: Meal Breakfast Percent of Meal Consumed 100% Feeding Ability Independent Urine Appearance Clear Urine Color [place] Exam: Constitutional; Afebrile, cooperative, alert, not in distress. Respiratory system: Air Entry equal on both sides, No crackles or wheezing, no rhonchi. CVS- Rate rhythm regular, S1,S2 heard, no gallop, no rub. 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 Medical - PN: Obj Da - Labs CBC & Chem 7: 03/02/18 04:00 03/02/18 04:00 Labs: Abnormal Lab Results 03/02/18 03/02/18 03/01/18 04:00 04:00 03:38 WBC RBC 4.30 L Hgb 13.3 L Hct 39.0 L Plt Count 117 L Gran % Lymph % (Auto) [place] % (Auto) Lymph # (Auto) [place] # (Auto) Band Neutrophils % 14 H Lymphocytes % 8 L Metamyelocytes % Platelet Estimate Decreased A VBG Lactic Acid Sodium Carbon Dioxide 20 L 19 L Anion Gap Creatinine Glucose Calcium 8.4 L 8.5 L Phosphorus Total Bilirubin 1.2 H Total Protein 5.5 L Albumin 3.1 L Triglycerides 153 H Urine Occult Blood Urine Nitrate Ur Leukocyte Esterase 03/01/18 02/28/18 02/28/18 03:38 08:15 07:57 WBC 14.8 H RBC 4.36 L Hgb 13.4 L Hct 40.1 L Plt Count 116 L Gran % Lymph % (Auto) [place] % (Auto) Lymph # (Auto) [place] # (Auto) Band Neutrophils % 25 H Lymphocytes % 7 L Metamyelocytes % Platelet Estimate Decreased A VBG Lactic Acid 2.1 H Sodium Carbon Dioxide Anion Gap Creatinine Glucose Calcium Phosphorus Total Bilirubin Total Protein Albumin Triglycerides Urine Occult Blood 0.2 A Urine Nitrate Pos A Ur Leukocyte Esterase 25 A 02/28/18 02/28/18 02/28/18 02:57 02:57 02:57 WBC 17.7 H RBC Hgb Hct 40.7 L Plt Count Gran % Lymph % (Auto) [place] % (Auto) Lymph # (Auto) [place] # (Auto) Band Neutrophils % 19 H Lymphocytes % 2 L Metamyelocytes % 2 H Platelet Estimate VBG Lactic Acid 2.9 H Sodium 132 L Carbon Dioxide 19 L Anion Gap Creatinine 1.4 H Glucose 133 H Calcium 8.5 L Phosphorus 2.0 L Total Bilirubin Total Protein 5.7 L Albumin Triglycerides Urine Occult Blood Urine Nitrate Ur Leukocyte Esterase 02/27/18 02/27/18 02/27/18 20:26 20:26 20:26 WBC RBC Hgb Hct Plt Count Gran % 97.2 H Lymph % (Auto) 2.2 L [place] % (Auto) 0.2 L Lymph # (Auto) 0.1 L [place] # (Auto) 0 L Band Neutrophils % Lymphocytes % Metamyelocytes % Platelet Estimate VBG Lactic Acid 2.4 H Sodium Carbon Dioxide 15 L Anion Gap 18.0 H Creatinine 1.3 H Glucose 157 H Calcium Phosphorus Total Bilirubin 1.2 H Total Protein Albumin Triglycerides Urine Occult Blood Urine Nitrate Ur Leukocyte Esterase Meds: Medications Acetaminophen (Tylenol) 650 mg PO Q4-6HP PRN PRN Reason: PAIN/FEVER > 101 Atorvastatin Calcium (Lipitor) 20 mg PO DAILY [facility] Last Admin: 03/02/18 08:50 Dose: 20 mg Bisacodyl (Dulcolax) 10 mg HI Q2-3DAYS PRN PRN Reason: Constipation Cyanocobalamin (Vitamin B-12) 1,000 mcg PO Th@0900 [facility] Docusate Sodium (Colace) 100 mg PO BID [facility] Last Admin: 03/02/18 08:50 Dose: 100 mg Ergocalciferol (Drisdol) 50,000 unit PO Th@0900 [facility] Heparin Sodium (Porcine) (Heparin) 5,000 unit SQ Q12 [facility] Last Admin: 03/02/18 08:50 Dose: 5,000 unit Ceftriaxone Sodium 2 gm/ (Dextrose) 50 mls @ 100 mls/hr IV DAILY [facility] Last Infusion: 03/02/18 09:24 Dose: Infused Magnesium Sulfate (Magnesium Sulfate) 2 gm in 50 mls @ 50 mls/hr IV UD PRN PRN Reason: MG = or < 1.7 Acetaminophen (Ofirmev) 1,000 mg in 100 mls @ 200 mls/hr IV Q6HP PRN PRN Reason: PAIN/FEVER > 101 Last Infusion: 03/01/18 13:15 Dose: Infused Vancomycin HCl 1,000 mg/ (Sodium Chloride) 250 mls @ 250 mls/hr IV Q12H [facility] Last Admin: 03/02/18 09:29 Dose: 250 mls/hr Iron Carb/Multivit/[place]/Folic Acid (Multivitamin W/Minerals) 1 tab PO DAILY [facility] Last Admin: 03/02/18 08:50 Dose: 1 tab Levothyroxine Sodium (Synthroid) 100 mcg PO QAMAC [facility] Last Admin: 03/02/18 07:24 Dose: 100 mcg Losartan Potassium (Cozaar) 50 mg PO DAILY [facility] Last Admin: 03/02/18 08:50 Dose: 50 mg Magnesium Hydroxide (Milk Of Magnesia) 30 ml PO DAILYP PRN PRN Reason: Constipation Omeprazole (Prilosec) 20 mg PO QAMAC [facility] Last Admin: 03/02/18 07:24 Dose: 20 mg Ondansetron HCl (Zofran) 4 mg IV Q4-6HP PRN PRN Reason: Nausea And Vomiting Phenazopyridine HCl (Pyridium) 200 mg PO TID [facility] Last Admin: 03/02/18 08:50 Dose: 200 mg Potassium Chloride (Klor-Con) 40 meq PO DAILYP PRN PRN Reason: K+ < 3.5 Potassium/Phosphorus/Sodium (Neutra Phos) 1 packet PO BID [facility] Last Admin: 03/02/18 08:51 Dose: 1 packet Senna/Docusate Sodium (Senna Plus Tablet) 1 tab PO HS [facility] Last Admin: 03/01/18 21:29 Dose: Not Given Sodium Biphosphate/Sodium Phosphate (Fleets Adult) 1 dose HI Q3-4DAYS PRN PRN Reason: Constipation Sodium Chloride (Saline Flush) 10 ml IV Q8 [facility] Last Admin: 03/02/18 06:41 Dose: Not Given Trazodone HCl (Desyrel) 50 mg PO HSP PRN PRN Reason: Insomnia Last Admin: 03/01/18 21:48 Dose: 50 mg Vancomycin HCl (Vancomycin Per Pharmacy) 1 order IV UD [facility] Medical - PN: A/P - Time Spent With Patient Total time spent is greater than 50% in coordination of care (as documented) at patient's floor/unit and/or counseling patient: - Narrative A/P Narrative: A/P Complicated UTI- Urine cultures sent, on IV rocephin with good response, monitor , cultures neg so far Gram positive Bactermia - started on vanco, continue rocephin, repeat cultures sent, await identification and speciation. Sepsis with hypotension/ Lactic acidosis-resolved. WBC normalized, lactic acid levels have normalized h/o HTN- Home bp meds to be resumed OT/PT DVT - hep sq Full code Medical - PN: Qual - VTE Deep Vein Thrombosis/Pulmonary Embolism Present on Admission: No
[2018-03-02] MEDS: SENNOSIDES/DOCUSATE SODIUM 1 TAB TABLET PO SCH (21:08)
[2018-03-03 06:05] LABS: Mean Cell Volume 91.6 fL (80.0-100.0); Mean Corpuscular HGB Conc 33.5 g/dL (31.0-36.0); Mean Corpuscular Hemoglobin 30.7 pg (26.0-34.0); Platelet Count 129 K/mcL (140-440); RBC 4.48 M/mcL (4.50-5.90); Red Cell Distribution Width 14.4 % (11.5-14.5)
[2018-03-03 06:12] LABS: ALT/SGPT 59 U/l (0-40); Alkaline Phosphatase 111 U/L (39-117); Bilirubin,Direct < 0.2 mg/dL (0.0-0.3); Blood Urea Nitrogen 11 mg/dl (8-23); Gamma Glutamyl Transpeptidase 83 U/L (8-61); Uric Acid 3.1 mg/dL (2.5-8.0)
[2018-03-03 06:52] LABS: Band Neutrophils % 3 % (0-10); Eosinophils % (Manual) 2 % (0-7); Lymphocytes % 12 % (15-49); Monocytes % (Manual) 8 % (1-12); Platelet Estimate DECREASED (NORMAL); RBC Morphology NORMAL (NORMAL); Segmented Neutrophils % 75 % (38-78)
[2018-03-03] MEDS: 0.9 % SODIUM CHLORIDE 10 ML SYRINGE IV SCH ×3 (07:14→21:48)
[2018-03-03] MEDS: OMEPRAZOLE 20 MG CAPSULE PO SCH (07:14)
[2018-03-03] MEDS: LEVOTHYROXINE 100 MCG TABLET PO SCH (07:14)
[2018-03-03] MEDS: MULTIVIT,THER IRON,CA,FA & MIN 1 TABLET PO SCH (09:08)
[2018-03-03] MEDS: HEPARIN 5,000 UNIT/ML VIAL SQ SCH ×2 (09:08→21:47)
[2018-03-03] MEDS: PHENAZOPYRIDINE 200 MG TABLET PO SCH ×3 (09:08→21:46)
[2018-03-03] MEDS: ATORVASTATIN 20 MG TABLET PO SCH (09:08)
[2018-03-03] MEDS: DOCUSATE SODIUM 100 MG CAPSULE PO SCH ×2 (09:08→21:45)
[2018-03-03] MEDS: LOSARTAN 50 MG TABLET PO SCH (09:09)
[2018-03-03] MEDS: cefTRIAXone 2 GM in DEXTROSE 5% IN WATER 50 ML IV SCH (09:09)
[2018-03-03] MEDS: NEUTRA PHOS 1 PACKET PO SCH ×2 (09:10→21:45)
[2018-03-03] MEDS: VANCOMYCIN 1,000 MG in 0.9 % SODIUM CHLORIDE 250 ML IV SCH ×2 (09:43→21:48)
--- NOTE | 2018-03-03 11:16 | Internal Med Progress Note ---
Medical - PN: Subj Patient information: Note initiated : 03/03/18 at 11:13 am Service Date, if different from initiated Date: [] Patient: Miquel Mullen a 77 y/o M admitted on 02/27/18 for UTI for 1 week. Chief Complaint: [] Interval history: Mr. Mullen is a 77 year old M with history of chronic urinary retention has been following up with urology since age 19. Patient self caths daily. Patient has been following up with urology Dr. Wright at [place]. Patient symptoms started roughly around a week ago and last Thursday he saw his urology. He was subsequent started on antibiotics however over the next 5 days he failed to improve. Noted intermittent fever along with weakness lightheadedness and has been feeling very lethargic. Increasing concerns [facility]. Initial workup was significant for pyuria/fever of 102 along with sepsis. Hospitalist service was consulted At the time of evaluation patient is accompanied with his Aditi. He was able to answer most of the questions. He denies hematuria but endorses to burning sensation. He denies drenching sweats but endorses to shaking chills. He denies chest pain myalgia arthralgia or rash, changes in medications. 02/28 Patient seen examined, no acute overnight issues, some low bp reading,s but otherwise doing well lactic acid was trending up, 2.9 this AM labs showed wbc 17, 19% bands, magnesium 1.6, phosphorus 2.0, creatinine 1.4. Patient received 2 L of saline bolus and lactic acid came down to 2.1. Patient clinically feeling much better has no chest pain shortness of breath or any GI complaints 03/01 Patient seen examined, doing much better, WBC trending down. The patient has burning sensation in the bladder. Once his home medication azo restarted. Lactic acid has normalized, patient will be moved from telemetry status to floor status. Patient still has a low-grade temperature. Anticipate discharge once afebrile 03/02 Pt seen examined, had some chills last night, low grade fever blood cultures drawn during admission is positive 2 bottles for GPC in clusters , no speciation provided Pt started on vancomycin, repeat cultures sent Patient otherwise doing much better no acute complaints or concerns. Plan of care reviewed with him and his 03/03 Pt seen examined, still has some burining during micturation, but otherwise no issues, Pt denies any fever, chills, or GI complaints No dental issues, or dental pain Blood culture is growing anaerobic gram positive cocci, final speciation and senstivity pending. D/c rocephin, will switch to imipenum for better anaerobic coverage Will continue IV vanco for now till final isolation. Etiology of anaerobic bactermia? will get CT abdomen and pelvis with oral and IV contrast, r/o enterocolic fistula, Pertinent ROS: Denies headache, dizziness Denies chest pain, palpitations Denies cough or shortness of breath Denies abdominal pain, nausea or vomiting. - Constitutional Vitals: Vital Signs Temp Pulse Resp BP Pulse Ox 98.6 F 75 16 125/82 94 03/03/18 07:07 03/03/18 04:00 03/03/18 07:07 03/03/18 07:07 03/03/18 07:07 Period Temp Pulse Resp BP Sys/Frausto Pulse Ox Last 24 Hr 98.2 F-100.3 F 75-83 16-24 111-125/67-82 92-98 Intake and Output 03/02/18 03/03/18 03/03/18 21:59 05:59 13:59 Intake Total 1120 / 1120 850 / 850 670 / 670 Output Total 0 / 0 Balance 1120 / 1120 850 / 850 670 / 670 Weight 233 lb 11.2 oz Intake & Output: Intake & Output 03/02/18 03/03/18 03/03/18 21:59 05:59 13:59 Intake Total 1120 / 1120 850 / 850 670 / 670 Output Total 0 / 0 Balance 1120 / 1120 850 / 850 670 / 670 Weight 233 lb 11.2 oz Intake: IV 250 / 250 300 / 300 Vancomycin 1,000 mg In Sodium 250 / 250 250 / 250 Chloride 0.9% 250 ml @ 250 mls/ hr IV Q12H JESSICA Rx#:[id number] Rocephin 2 gm In Dextrose 5% in 50 / 50 Water 50 ml @ 100 mls/hr IV DAILY JESSICA Rx#:[id number] Oral 1120 / 1120 600 / 600 370 / 370 Output: Void Amount 0 / 0 Other: Meal Dinner Breakfast Percent of Meal Consumed 100% 100% Feeding Ability Independent Urine Appearance Uretheral (Ta) Clear Urine Color Uretheral (Ta) Coryell # Voids 1 Exam: Constitutional; Afebrile, cooperative, alert, not in distress. Respiratory system: Air Entry equal on both sides, No crackles or wheezing, no rhonchi. CVS- Rate rhythm regular, S1,S2 heard, no gallop, no rub. Abdomen- Soft nontender abdomen, no organomegaly, no tenderness, no guarding or rigidity, [employer]- AOOx3, moving all extremities, no gross focal deficit noted. Medical - PN: Obj Da - Labs CBC & Chem 7: 03/03/18 04:05 03/03/18 04:05 Labs: Abnormal Lab Results 03/03/18 03/03/18 03/02/18 04:05 04:05 04:00 WBC RBC 4.48 L Hgb Hct Plt Count 129 L Band Neutrophils % Lymphocytes % 12 L Platelet Estimate Decreased A Carbon Dioxide 18 L 20 L Calcium 8.4 L Total Bilirubin GGT 83 H AST 57 H ALT 59 H Total Protein Albumin 3.0 L 3.1 L Triglycerides 168 H 153 H 03/02/18 03/01/18 03/01/18 04:00 03:38 03:38 WBC 14.8 H RBC 4.30 L 4.36 L Hgb 13.3 L 13.4 L Hct 39.0 L 40.1 L Plt Count 117 L 116 L Band Neutrophils % 14 H 25 H Lymphocytes % 8 L 7 L Platelet Estimate Decreased A Decreased A Carbon Dioxide 19 L Calcium 8.5 L Total Bilirubin 1.2 H GGT AST ALT Total Protein 5.5 L Albumin Triglycerides Meds: Medications Acetaminophen (Tylenol) 650 mg PO Q4-6HP PRN PRN Reason: PAIN/FEVER > 101 Atorvastatin Calcium (Lipitor) 20 mg PO DAILY PENDING SALE TO [facility] Last Admin: 03/03/18 09:08 Dose: 20 mg Bisacodyl (Dulcolax) 10 mg KS Q2-3DAYS PRN PRN Reason: Constipation Cyanocobalamin (Vitamin B-12) 1,000 mcg PO Th@0900 PENDING SALE TO [facility] Docusate Sodium (Colace) 100 mg PO BID PENDING SALE TO [facility] Last Admin: 03/03/18 09:08 Dose: 100 mg Ergocalciferol (Drisdol) 50,000 unit PO Th@0900 PENDING SALE TO [facility] Heparin Sodium (Porcine) (Heparin) 5,000 unit SQ Q12 PENDING SALE TO [facility] Last Admin: 03/03/18 09:08 Dose: 5,000 unit Ceftriaxone Sodium 2 gm/ (Dextrose) 50 mls @ 100 mls/hr IV DAILY PENDING SALE TO [facility] Last Infusion: 03/03/18 09:40 Dose: Infused Magnesium Sulfate (Magnesium Sulfate) 2 gm in 50 mls @ 50 mls/hr IV UD PRN PRN Reason: MG = or < 1.7 Acetaminophen (Ofirmev) 1,000 mg in 100 mls @ 200 mls/hr IV Q6HP PRN PRN Reason: PAIN/FEVER > 101 Last Infusion: 03/01/18 13:15 Dose: Infused Vancomycin HCl 1,000 mg/ (Sodium Chloride) 250 mls @ 250 mls/hr IV Q12H PENDING SALE TO [facility] Last Infusion: 03/03/18 11:11 Dose: Infused Iron Carb/Multivit/Field Staff Manager/Folic Acid (Multivitamin W/Minerals) 1 tab PO DAILY PENDING SALE TO [facility] Last Admin: 03/03/18 09:08 Dose: 1 tab Levothyroxine Sodium (Synthroid) 100 mcg PO QAMAC PENDING SALE TO [facility] Last Admin: 03/03/18 07:14 Dose: 100 mcg Losartan Potassium (Cozaar) 50 mg PO DAILY PENDING SALE TO [facility] Last Admin: 03/03/18 09:09 Dose: 50 mg Magnesium Hydroxide (Milk Of Magnesia) 30 ml PO DAILYP PRN PRN Reason: Constipation Last Admin: 03/02/18 15:05 Dose: 30 ml Omeprazole (Prilosec) 20 mg PO QAMAC PENDING SALE TO [facility] Last Admin: 03/03/18 07:14 Dose: 20 mg Ondansetron HCl (Zofran) 4 mg IV Q4-6HP PRN PRN Reason: Nausea And Vomiting Phenazopyridine HCl (Pyridium) 200 mg PO TID PENDING SALE TO [facility] Last Admin: 03/03/18 09:08 Dose: 200 mg Potassium Chloride (Klor-Con) 40 meq PO DAILYP PRN PRN Reason: K+ < 3.5 Potassium/Phosphorus/Sodium (Neutra Phos) 1 packet PO BID PENDING SALE TO [facility] Last Admin: 03/03/18 09:10 Dose: 1 packet Senna/Docusate Sodium (Senna Plus Tablet) 1 tab PO HS PENDING SALE TO [facility] Last Admin: 03/02/18 21:08 Dose: 1 tab Sodium Biphosphate/Sodium Phosphate (Fleets Adult) 1 dose KS Q3-4DAYS PRN PRN Reason: Constipation Sodium Chloride (Saline Flush) 10 ml IV Q8 PENDING SALE TO [facility] Last Admin: 03/03/18 07:14 Dose: 10 ml Trazodone HCl (Desyrel) 50 mg PO HSP PRN PRN Reason: Insomnia Last Admin: 03/01/18 21:48 Dose: 50 mg Vancomycin HCl (Vancomycin Per Pharmacy) 1 order IV UD PENDING SALE TO [facility] Medical - PN: A/P - Time Spent With Patient Total time spent is greater than 50% in coordination of care (as documented) at patient's floor/unit and/or counseling patient: - Narrative A/P Narrative: A/P Complicated UTI- Urine cultures sent, neg growth so far Gram positive Bacteremia -anaerobic bacteremia, d/c Rocephin, start on imipenem , continue vanco, source? get CT abdomen and pelvis. UTI from anaerobic source is a bit unusual. Sepsis with hypotension/ Lactic acidosis-resolved. WBC normalized, lactic acid levels have normalized h/o HTN-Bp stable, home meds resumed, OT/PT DVT - hep sq Full code Medical - PN: Qual - VTE Deep Vein Thrombosis/Pulmonary Embolism Present on Admission: No
[2018-03-03] MEDS: ERTAPENEM 1 GM in 0.9 % SODIUM CHLORIDE 50 ML IV SCH (12:50)
[2018-03-03] MEDS ORDERED: IOPAMIDOL 100 ML BOTTLE IV ONE (13:18)
--- NOTE | 2018-03-03 15:08 | Cat Scan Report ---
CLINICAL INFORMATION: Enterovesical fistula COMPARISON: Abdomen and pelvic CT 05/11/2017 TECHNIQUE: Following enteric contrast, 80 cc of Isovue-300 were injected intravenously, and 60 seconds later, 0.625 mm helical slices were obtained from the mid heart through the subtrochanteric regions. Following reconstruction, 2.5 mm sagittal, coronal and axial reformatted images were processed and reviewed at bone, lung and soft tissue windows. Five minutes later, 0.625 mm helical slices were obtained from the mid heart through the kidneys and viewed at soft tissue windows.The exam was performed using radiation dose optimization techniques including, but not limited to, automated exposure control, adjustment of the mA and/or kV according to patient size and use of iterative reconstruction technique. FINDINGS: Lung bases show scattered stable scarring. 7 mm nodule lateral basilar segment left lower lobe (image 36) is unchanged. No effusions. The visualized heart is borderline enlarged. Images through the abdomen show a 1 cm peripherally enhancing nodule in the posterior segment of the right upper lobe which should represent a benign hemangioma. It is unchanged. No significant liver lesions. The gallbladder wall is now diffusely thickened with decreased attenuation and scatter wall calcification. A few stones noted within the gallbladder. There is also inflammation in the pericholecystic fat. Findings highly suspicious for cholecystitis. The intrahepatic and extra hepatic bile ducts are normal caliber - CBD is 5 mm. Focal scarring in the lateral mid left kidney seen - as before. Parapelvic cysts in both kidneys again noted. Both adrenal glands, spleen, pancreas and aorta, including aortic branches, are normal in size, configuration and attenuation without focal lesion Images through the pelvis show mild prostate enlargement which is stable. Urinary bladder is moderately distended on today's study. There is no evidence of focal anterior wall thickening that was appreciated on the previous study. This may have represented an artifact related to underdistention. No enterovesical fistula is identified. The stomach, small and large bowel are unremarkable. 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 It is unchanged. No free air, free fluid or adenopathy. Bone windows show moderate L4-5 disc protrusion, but no focal osseous lesions. IMPRESSION: 1. Cholecystitis. Intrahepatic and common bile ducts are normal caliber. 2. 1 cm hemangioma in the posterior segment right upper lobe - stable 3. No evidence of enterovesical fistula. If there is strong clinical support for such a fistula that his urine stool or gas within suggest water-soluble contrast enema. 4. 7 mm nodule - lateral basilar segment of the left lower lobe - stable 5. Urinary bladder is markedly distended. The anterior urinary bladder wall is unremarkable in today's study. Presumably, the anterior thickening, described on previous CT, was due to underdistention artifact 6. Focal scarring lateral cortex mid left kidney and parapelvic cysts both kidneys Interpreted and Authenticated by: Addy Chang 03/03/18
--- NOTE | 2018-03-03 17:50 | General Surgery Consult Note ---
History of Present Illness Patient information: Note initiated : 03/03/18 at 5:47 pm Service Date, if different from initiated Date: [] Patient: Miquel Mullen 77 y/o M admitted on 02/27/18 for UTI for 1 week. Chief Complaint: [] Reason for consult: gallstones Medications and Allergies Home Medications Medication Instructions Recorded Confirmed Type Phenazopyridine HCl [Azo Urinary 2 tab PO TID 02/27/18 02/27/18 History Pain Relief] Sulfamethoxazole/Trimethoprim 1 tab PO BID 02/27/18 02/28/18 History [Bactrim Ds] Atorvastatin [Lipitor] 20 mg PO DAILY 02/28/18 02/28/18 History Levothyroxine [Synthroid] 100 mcg PO DAILY 02/28/18 02/28/18 History Losartan Potassium 50 mg PO DAILY 02/28/18 02/28/18 History Losartan Potassium [Cozaar] 25 mg PO TID 02/28/18 02/28/18 History Omeprazole [Prilosec] 20 mg PO DAILY 02/28/18 02/28/18 History Vitamin B12 1,000 mcg PO WEEKLY 02/28/18 02/28/18 History Vitamin D3 Complete Caplet 50,000 unit PO WEEKLY 02/28/18 02/28/18 History Allergies Allergy/AdvReac Type Severity Reaction Status Date / Time No Known Drug Allergies Allergy Unknown NONE Unverified 03/01/18 07:11 [NKDA] Exam Temp Pulse Resp BP Pulse Ox 98.7 F 75 20 124/77 94 03/03/18 15:09 03/03/18 04:00 03/03/18 15:09 03/03/18 15:09 03/03/18 15:09 Results - Labs 03/03/18 04:05 03/03/18 04:05 Abnormal lab results 03/03/18 03/03/18 Range/Units 04:05 04:05 RBC 4.48 L (4.50-5.90) M/mcL Plt Count 129 L (140-440) K/mcL Lymphocytes % 12 L (15-49) % Platelet Estimate Decreased A (NORMAL) Carbon Dioxide 18 L (22-30) mmol/L GGT 83 H (8-61) U/L AST 57 H (0-37) U/l ALT 59 H (0-40) U/l Albumin 3.0 L (3.2-5.2) gm/dL Triglycerides 168 H (<150) mg/dl Diabetes panel 03/03/18 Range/Units 04:05 Sodium 135 (133-145) mmol/L Potassium 4.5 (3.3-5.1) mmol/L Chloride 104 (96-108) mmol/L Carbon Dioxide 18 L (22-30) mmol/L BUN 11 (8-23) mg/dl Creatinine 0.9 (0.7-1.2) mg/dl Glucose 100 (70-105) mg/dL Calcium 8.6 (8.6-10.4) mg/dl AST 57 H (0-37) U/l ALT 59 H (0-40) U/l Alkaline Phosphatase 111 (39-117) U/L Total Protein 6.0 (5.9-8.4) gm/dL Albumin 3.0 L (3.2-5.2) gm/dL Triglycerides 168 H (<150) mg/dl Calcium panel 03/03/18 Range/Units 04:05 Calcium 8.6 (8.6-10.4) mg/dl Phosphorus 3.3 (2.7-4.5) mg/dL Albumin 3.0 L (3.2-5.2) gm/dL Pituitary panel 03/03/18 Range/Units 04:05 Sodium 135 (133-145) mmol/L Potassium 4.5 (3.3-5.1) mmol/L Chloride 104 (96-108) mmol/L Carbon Dioxide 18 L (22-30) mmol/L BUN 11 (8-23) mg/dl Creatinine 0.9 (0.7-1.2) mg/dl Glucose 100 (70-105) mg/dL Calcium 8.6 (8.6-10.4) mg/dl Adrenal panel 03/03/18 Range/Units 04:05 Sodium 135 (133-145) mmol/L Potassium 4.5 (3.3-5.1) mmol/L Chloride 104 (96-108) mmol/L Carbon Dioxide 18 L (22-30) mmol/L BUN 11 (8-23) mg/dl Creatinine 0.9 (0.7-1.2) mg/dl Glucose 100 (70-105) mg/dL Calcium 8.6 (8.6-10.4) mg/dl Total Bilirubin 1.0 (0.0-1.0) mg/dL AST 57 H (0-37) U/l ALT 59 H (0-40) U/l Alkaline Phosphatase 111 (39-117) U/L Total Protein 6.0 (5.9-8.4) gm/dL Albumin 3.0 L (3.2-5.2) gm/dL All other labs normal. Assessment and Plan (1) Cholelithiasis and cholecystitis without obstruction The patient has gallstone disease and probably has chronic cholecystitis. He does not have any acute symptoms suggestive of acute cholecystitis. He has no pain and he has no postprandial symptoms at any time. He should have cholecystectomy electively however we need to wait to allow him to recover from his bacteremia before scheduling that. I discussed this with his family and he will make an appointment to see me in 3-4 weeks at which time I will schedule him for cholecystectomy as an outpatient. It is highly unlikely that the gallbladder is the source of his gram-positive anaerobic bacteremia. Status: Acute Qualifiers: Cholelithiasis location: gallbladder Cholecystitis acuity: chronic Qualified Code(s): K80.10 - Calculus of gallbladder with chronic cholecystitis without obstruction (2) Sepsis associated hypotension Status: Acute (3) Urinary tract infection Status: Acute Qualifiers: Urinary tract infection type: catheter-associated UTI Indwelling urinary catheter type: unspecified Encounter type: initial encounter Qualified Code( s): T83.511A - Infection and inflammatory reaction due to indwelling urethral catheter, initial encounter; N39.0 - Urinary tract infection, site not specified
[2018-03-03] MEDS: SENNOSIDES/DOCUSATE SODIUM 1 TAB TABLET PO SCH (21:45)
[2018-03-04 06:02] LABS: Mean Cell Volume 90.6 fL (80.0-100.0); Mean Corpuscular HGB Conc 33.6 g/dL (31.0-36.0); Mean Corpuscular Hemoglobin 30.4 pg (26.0-34.0); Platelet Count 148 K/mcL (140-440); RBC 4.49 M/mcL (4.50-5.90); Red Cell Distribution Width 14.5 % (11.5-14.5)
[2018-03-04 06:38] LABS: ALT/SGPT 95 U/l (0-40); Albumin 2.9 gm/dL (3.2-5.2); Albumin/Globulin Ratio 0.9 (1.0-2.3); Alkaline Phosphatase 113 U/L (39-117); Bilirubin,Direct < 0.2 mg/dL (0.0-0.3); Blood Urea Nitrogen 13 mg/dl (8-23); Gamma Glutamyl Transpeptidase 95 U/L (8-61); Uric Acid 3.4 mg/dL (2.5-8.0)
[2018-03-04] MEDS: LEVOTHYROXINE 100 MCG TABLET PO SCH (07:23)
[2018-03-04] MEDS: OMEPRAZOLE 20 MG CAPSULE PO SCH (07:23)
[2018-03-04] MEDS: 0.9 % SODIUM CHLORIDE 10 ML SYRINGE IV SCH ×2 (07:24→15:36)
[2018-03-04] MEDS: ERTAPENEM 1 GM in 0.9 % SODIUM CHLORIDE 50 ML IV SCH (07:24)
[2018-03-04 07:47] LABS: Band Neutrophils % 1 % (0-10); Eosinophils % (Manual) 2 % (0-7); Lymphocytes % 12 % (15-49); Monocytes % (Manual) 12 % (1-12); Myelocytes % 1 % (0-0); Platelet Estimate NORMAL (NORMAL); RBC Morphology NORMAL (NORMAL); Segmented Neutrophils % 72 % (38-78)
[2018-03-04] MEDS ORDERED: ERGOCALCIFEROL (VITAMIN D2) 50,000 UNIT CAPSULE PO SCH (09:00)
[2018-03-04] MEDS ORDERED: CYANOCOBALAMIN (VITAMIN B-12) 500 MCG TABLET PO SCH (09:00)
[2018-03-04] MEDS: NEUTRA PHOS 1 PACKET PO SCH (09:52)
[2018-03-04] MEDS: MULTIVIT,THER IRON,CA,FA & MIN 1 TABLET PO SCH (09:52)
[2018-03-04] MEDS: LOSARTAN 50 MG TABLET PO SCH (09:52)
[2018-03-04] MEDS: PHENAZOPYRIDINE 200 MG TABLET PO SCH ×2 (09:52→15:50)
[2018-03-04] MEDS: HEPARIN 5,000 UNIT/ML VIAL SQ SCH (09:52)
[2018-03-04] MEDS: DOCUSATE SODIUM 100 MG CAPSULE PO SCH (09:52)
[2018-03-04] MEDS: ATORVASTATIN 20 MG TABLET PO SCH (09:52)
[2018-03-04] MEDS ORDERED: 0.9 % SODIUM CHLORIDE 10 ML SYRINGE IV PRN (10:08)
[2018-03-04] MEDS: VANCOMYCIN 1,000 MG in 0.9 % SODIUM CHLORIDE 250 ML IV SCH (11:00)
--- NOTE | 2018-03-04 14:58 | Discharge Summary ---
Medical - DS: Prov Patient information: Note initiated : 03/04/18 at 2:54 pm Service Date, if different from initiated Date: [] Patient: Miquel Mullen 77 y/o M admitted on 02/27/18 for UTI for 1 week. Chief Complaint: [] Date of admission: 02/27/18 23:28 Discharge date: 03/04/18 Consults: 02/27/18 Consult to Physician [CONS] Stat Comment: Consulting Provider: Kaz Bragg Reason For Exam: Physician to Consult 03/03/18 17:47 Consult to Physician [CONS] Routine Comment: Consulting Provider: Alana Morgan Reason For Exam: Physician to Consult Discharging clinician: Nataly Faria Medical - DS: Meds - Discharge Medications Prescriptions: Ertapenem [Invanz] 1 gm IV Q24H #12 vial Active and Home Medications: Home Medications Phenazopyridine HCl [Azo Urinary Pain Relief] 2 tab PO TID 02/27/18 [History Confirmed 02/27/18 Last Taken Unknown] Sulfamethoxazole/Trimethoprim [Bactrim Ds] 1 tab PO BID 02/27/18 [History Confirmed 02/28/18 Last Taken 02/27/18 08:00] Atorvastatin [Lipitor] 20 mg PO DAILY 02/28/18 [History Confirmed 02/28/18 Last Taken Unknown] Levothyroxine [Synthroid] 100 mcg PO DAILY 02/28/18 [History Confirmed 02/28/18 Last Taken Unknown] Losartan Potassium 50 mg PO DAILY 02/28/18 [History Confirmed 02/28/18 Last Taken Unknown] Losartan Potassium [Cozaar] 25 mg PO TID 02/28/18 [History Confirmed 02/28/18 Last Taken Unknown] Omeprazole [Prilosec] 20 mg PO DAILY 02/28/18 [History Confirmed 02/28/18 Last Taken Unknown] Vitamin B12 1,000 mcg PO WEEKLY 02/28/18 [History Confirmed 02/28/18 Last Taken Unknown] Vitamin D3 Complete Caplet 50,000 unit PO WEEKLY 02/28/18 [History Confirmed 12/08 Last Taken Unknown] Medical - DS: Hosp Hospital course: Mr. Mullen is a 77 year old M with history of chronic urinary retention has been following up with urology since age 19. Patient self caths daily. Patient has been following up with urology Dr. Wright at [facility]. Patient symptoms started roughly around a week ago and last Thursday he saw his urology. He was subsequent started on antibiotics however over the next 5 days he failed to improve. Noted intermittent fever along with weakness lightheadedness and has been feeling very lethargic. Increasing concerns he was brought into [facility]. Initial workup was significant for pyuria/fever of 102 along with sepsis. Hospitalist service was consulted At the time of evaluation patient is accompanied with his Aditi. He was able to answer most of the questions. He denies hematuria but endorses to burning sensation. He denies drenching sweats but endorses to shaking chills. He denies chest pain myalgia arthralgia or rash, changes in medications. 02/28 Patient seen examined, no acute overnight issues, some low bp reading,s but otherwise doing well lactic acid was trending up, 2.9 this AM labs showed wbc 17, 19% bands, magnesium 1.6, phosphorus 2.0, creatinine 1.4. Patient received 2 L of saline bolus and lactic acid came down to 2.1. Patient clinically feeling much better has no chest pain shortness of breath or any GI complaints 03/01 Patient seen examined, doing much better, WBC trending down. The patient has burning sensation in the bladder. Once his home medication azo restarted. Lactic acid has normalized, patient will be moved from telemetry status to floor status. Patient still has a low-grade temperature. Anticipate discharge once afebrile 03/02 Pt seen examined, had some chills last night, low grade fever blood cultures drawn during admission is positive 2 bottles for GPC in clusters , no speciation provided Pt started on vancomycin, repeat cultures sent Patient otherwise doing much better no acute complaints or concerns. Plan of care reviewed with him and his 03/03 Pt seen examined, still has some burning during micturition, but otherwise no issues, Pt denies any fever, chills, or GI complaints No dental issues, or dental pain Blood culture is growing anaerobic gram positive cocci, final speciation and sensitivity pending. D/c rocephin, will switch to imipenem for better anaerobic coverage Will continue IV vanco for now till final isolation. Etiology of anaerobic bacteremia? will get CT abdomen and pelvis with oral and IV contrast, r/o enterocolic fistula, 03/04 Patient seen examined no acute issues, blood cultures are negative at 48 hrs. I reviewed the findings with Dr Ramey at [facility] (infectious disease) Who advised an echo, and repeat urine culture anaerobic culture. He also advised total of 14 days of ertapenem. Pt has received 2 days of ertapenem in the hospital will get another 12 days as outpatient. He will follow up with Dr Del Toro in 2 weeks as outpatient. In summary Complicated UTI-patient presented to the hospital with symptoms of sepsis and urinary tract infection. Urine culture has been negative. Patient responded to IV Rocephin. The patient had gram positive Bacteremia -anaerobic bacteremia , which was later isolated as Peptostreptococcus assachrolyticus. The patient was switched to imipenum and has tolerated the medication well. he did have pelvic pain at the time of presentation. Examination of the genitalia did not reveal cellulitis or discharge He had imaging done CT scan of his abdomen and pelvis and no evidence was noted for his anaerobic bacteremia. He does have cholecystitis on the CT scan but clinically does not have cholecystitis. He was evaluated by general surgery and it was noted that the gallbladder is unlikely to be causing the patient's bacteremia. The patient is being discharged with a total of 14 days of ertapenem, he is going to get an echocardiogram on the day of discharge if there is any evidence of endocarditis I will call the patient and also informed the patient's infectious disease provider. The duration of antibiotics would be longer in that case. Repeat urine culture anaerobic has been ordered. Chronic cholecystitis-patient will follow up with Dr. Morgan as an outpatient in 4-6 weeks after resolution of this acute episode for elective cholecystectomy At the time of discharge patient is hemodynamically stable tolerating p.o. and back to baseline, Discharge diagnosis: Complicated UTI, Bactermia, Chr cholecysititis - Time Spent with Patient Total time spent providing and/or coordinating discharge services: Greater than 30 minutes Medical - DS: Exam - Constitutional Vitals: Vital Signs Temp Pulse Resp BP BP Pulse Ox 03/04/18 12:00 97.8 F 61 16 119/74 94 03/04/18 07:03 99.0 F 59 L 18 119/76 92 03/04/18 03:35 98.9 F 73 18 106/64 93 03/03/18 23:17 98.2 F 70 18 120/77 95 03/03/18 19:35 97.9 F 72 18 123/80 94 03/03/18 15:09 98.7 F 20 124/77 94 Intake and Output 03/04/18 03/04/18 03/04/18 05:59 13:59 21:59 Intake Total 650 / 650 300 / 300 Output Total 0 / 0 Balance 650 / 650 300 / 300 Intake: IV 300 / 300 INVanz 1 GM In Sodium Chloride 50 / 50 0.9% 50 ml @ 100 mls/hr IV Q24H JESSICA Rx#:[id number] Vancomycin 1,000 mg In Sodium 250 / 250 Chloride 0.9% 250 ml @ 250 mls/ hr IV Q12H JESSICA Rx#:[id number] Oral 650 / 650 Output: Void Amount 0 / 0 Other: Meal Lunch Percent of Meal Consumed 75% Feeding Ability Independent # Voids 1 Additional comments: Constitutional; Afebrile, cooperative, alert, not in distress. Eyes- No icterus, , No periorbital swelling Ears- Ext ear normal, hearing normal to conversation. Neck- Midline trachea, supple Respiratory system: Air Entry equal on both sides, No crackles or wheezing, no rhonchi. CVS- Rate rhythm regular, S1,S2 heard, no gallop, no rub. Abdomen- Soft nontender abdomen, no organomegaly, no tenderness, no guarding or rigidity, CHEMICAL ECONOMIST- AOOx3, moving all extremities, no gross focal deficit noted. Medical - DS: Data Labs on day of discharge: Labs from last 24 hours 03/04/18 03/04/18 03/04/18 08:10 04:35 04:35 WBC 6.7 RBC 4.49 L Hgb 13.7 Hct 40.7 L MCV 90.6 MCH 30.4 MCHC 33.6 RDW 14.5 Plt Count 148 MPV 8.3 Total Counted 100 Seg Neutrophils % 72 Band Neutrophils % 1 Lymphocytes % 12 L Monocytes % (Manual) 12 Eosinophils % (Manual) 2 Myelocytes % 1 H Platelet Estimate Normal RBC Morphology Normal Sodium 136 Potassium 4.8 Chloride 104 Carbon Dioxide 20 L Anion Gap 12.0 BUN 13 Creatinine 1.0 GFR Calculation 72 Glucose 100 Uric Acid 3.4 Calcium 9.0 Phosphorus 4.5 Magnesium 2.3 Total Bilirubin 0.7 Direct Bilirubin < 0.2 GGT 95 H AST 79 H ALT 95 H Alkaline Phosphatase 113 Lactate Dehydrogenase 323 H Total Protein 6.1 Albumin 2.9 L Globulin 3.2 Albumin/Globulin Ratio 0.9 L Triglycerides 187 H Vancomycin Trough 9.2 Preliminary micro results at discharge 03/02/18 09:40 Blood Culture - Preliminary Blood 03/02/18 09:47 Blood Culture - Preliminary Blood 02/27/18 20:33 Blood Culture - Preliminary Blood Peptostrep asaccharolyticus Anaerobic gram positive cocci 02/27/18 20:26 Blood Culture - Preliminary Blood Gram positive cocci Medical - DS: A/P - Patient/Caregiver Discharge Instructions Activity: increase activity as tolerated Diet: Regular Diet Additional Instructions: Take IV ertapenem 1gm via picc line daily for another 12 days. last dose of antibiotic is 03/17/2018 PICC line care per facility protocol Follow up with Dr Ramey (Infectious disease specialist) at [facility] in 1-2 weeks. Follow up with Dr Morgan ([facility]) in 4-6 weeks. Follow up with PCP in 1 week Go to the ER if fever chills or any other acute concern. I will call you and your Infectious disease doctor if the Echocardiogram shows any e/o of infection in the heart, you can otherwise follow up the results of this test with your PCP. - Follow up Plan Follow up with: Isidro Magdaleno MD [Family Provider] - Disposition: Home, Self-Care Prognosis: Fair Rehab Potential: Fair I certify that the patient requires SNF services: No Overall status at discharge: patient is progressing back to baseline Medical - DS: Qual - VTE Deep Vein Thrombosis/Pulmonary Embolism Present on Admission: No
--- NOTE | 2018-03-04 15:54 | XRay Report ---
CLINICAL INFORMATION: PICC PLACEMENT COMPARISON: 02/27/2018 FINDINGS: Right PICC line tip overlies the SVC azygos junction. Cardiomediastinal silhouette and pulmonary vessels are normal. Minor atelectasis in the left base. Airspace disease in the left base is unchanged. No effusion. IMPRESSION: PICC line satisfactory position overlying the SVC azygos junction. Minor left basilar airspace disease stable Interpreted and Authenticated by: Addy Chang 03/04/18
[2018-03-04] MEDS ORDERED: 0.9 % SODIUM CHLORIDE 10 ML SYRINGE IV SCH (21:00)
== END 2018-03-04 17:30 | disposition home or self-care (01) | DRG 872 ==
LOC: ED 20:07 → ICU 23:28 → MEDSUR 03-01 10:02
PROVIDERS: ADMIT Internal Medicine; ATTEND Internal Medicine
CPT/HCPCS: 87149; 93306; 97161; 97166; 99231; A4221; A4340; C1751; J0131; J0696; J1335; J1644; J3370; J3475; J7030; J7050; J7060; J7120; Q9967